=== PATIENT | female | born 1935 | race Caucasian/White ===

== ENCOUNTER 2016-10-30 21:59 | Inpatient (IN) ==
[2016-10-31] MEDS: Acetaminophen 325 MG TABLET PO PRN (02:45)
[2016-10-31] MEDS: *HR* LORazepam 0.5 MG TABLET PO PRN (02:45)
[2016-10-31 05:41] LABS: Basophils # 0.1 K/mcL (0.0-0.2); Basophils % 0.6 %; Eosinophils # 0.4 K/mcL (0.0-0.6); Eosinophils % 2.9 %; INR 1.2; Immature Granulocytes % 0.6 % (0-4); Lymphocytes # 2.6 K/mcL (0.6-4.6); Mean Corpuscular HGB Conc 33.3 g/dL (31.6-35.5); Mean Corpuscular Hemoglobin 27.8 pg (28.0-33.3); Mean Corpuscular Volume 83.3 fL (83.0-100.0); Mean Platelet Volume 9.6 fL (9.4-12.4); Monocytes # 1.2 K/mcL (0.0-1.3); Monocytes % 8.4 %; Neutrophils # 9.5 K/mcL (1.6-8.9); Platelet Count 561 K/mcL (140-400); Prothrombin Time 12.6 Seconds (9.4-12.1); Red Cell Distribution Width 13.2 % (11.5-14.5); Segmented Neutrophils % 68.5 %
[2016-10-31 05:44] LABS: Activated Partial Thrombo Time 30.3 Seconds (26.0-36.0)
[2016-10-31 05:49] LABS: BUN/Creatinine Ratio 15 (6-26); Blood Urea Nitrogen 10 mg/dL (7-20); Calcium 8.8 mg/dL (8.6-10.8); Carbon Dioxide 30 mEq/L (19-29); Chloride 100 mEq/L (98-109); Glucose 89 mg/dL (70-99); Osmolality,Calculated 289 (280-300); Potassium 3.1 mEq/L (3.5-4.5); Sodium 140 mEq/L (136-145); eGFR For African Americans > 60 (> 60); eGFR For Non-African Americans > 60 (> 60)
[2016-10-31] MEDS: Levothyroxine 25 MCG TABLET PO SCH (06:09)
[2016-10-31] MEDS: *HR* Enoxaparin 30 MG/0.3 ML SYRINGE SQ SCH (06:09)
[2016-10-31] MEDS: amLODIPine 5 MG TABLET PO SCH ×2 (08:00→20:44)
[2016-10-31] MEDS: Aspirin Enteric Coated 81 MG Tablet PO SCH (08:00)
--- NOTE | 2016-10-31 11:46 | Internal Med History&Physical ---
Date of Encounter: 10/31/16 Time of Encounter: 11:46 Internal Medicine - H&P: HPI Admitted From: Hospital to Hospital Transfer Plans for Post Hospital Care: Home History of present illness: Ms. Bolton is a 81 year old female Past Med Surg Social Fam HX - Past Medical History Medical history: arthritis, COPD, GI bleed, hypertension, SVT, thyroid disease, other Psychiatric history: anxiety - Past Surgical History Surgical History: no surgical history - Social History Smoking Status: Never smoker Smokeless Tobacco Status: No Alcohol use: none Drug use: none - Family History Mother Living Status: Hx Family Cardiac Disorders: Yes Internal Medicine - H&P: Meds Amlodipine [Norvasc] 5 mg PO BID 04/23/15 [History] Aspirin Enteric Coated [Aspirin EC] 81 mg PO DAILY 04/23/15 [History] LORazepam [Ativan] 0.5 mg PO DAILY PRN 04/23/15 [History] Levothyroxine [Synthroid] 12.5 mcg PO DAILY 04/23/15 [History] Propranolol HCl 40 mg PO 5XD 04/23/15 [History] Losartan [Cozaar] 50 mg PO BID 10/01/16 [History] Acetaminophen [Non-Aspirin] 325 mg PO Q4H PRN 10/30/16 [History] Amoxicillin/Clavulanate [Augmentin] 875 mg PO BIDWM 10/30/16 [History] Docusate [Colace] 100 mg PO DAILY PRN 10/30/16 [History] Allergies azithromycin [From Zithromax Z-Ed] Allergy (Verified 10/23/16 00:42) See Comments Iodinated Contrast Media - Oral and [Iodinated Contrast Media - IV Dye] Allergy (Verified 10/23/16 00:42) Anaphylaxis epinephrine Adverse Reaction (Verified 10/23/16 00:42) See Comments "speeds heart up" All Systems PM: A 10-system review of systems was performed and is negative for pertinent findings except as documented above in the HPI. - Constitutional Vitals: Temp Pulse Resp BP Pulse Ox 98.1 F 104 16 125/80 90 10/31/16 07:41 10/31/16 10:16 10/31/16 08:10 10/31/16 08:10 10/31/16 08:10 - Head Head exam: Present: atraumatic, normocephalic Internal Med - H&P Results - Labs CBC & Chem 7: 10/31/16 05:15 10/31/16 05:15 Labs: Short CBC 10/31/16 Range/Units 05:15 WBC 13.9 H (4.3-11.1) K/mcL Hgb 10.0 L (11.5-15.4) g/dL Hct 30.0 L (35.3-44.9) % Plt Count 561 H (140-400) K/mcL Neutrophils # 9.5 H (1.6-8.9) K/mcL BMP 10/31/16 05:15 Sodium 140 Potassium 3.1 L Chloride 100 Carbon Dioxide 30 H BUN 10 Creatinine 0.65 Glucose 89 Calcium 8.8
[2016-11-01] MEDS: Acetaminophen 325 MG TABLET PO PRN ×4 (00:06→23:30)
[2016-11-01] MEDS: *HR* LORazepam 0.5 MG TABLET PO PRN ×2 (00:07→23:29)
[2016-11-01] MEDS: *HR* Enoxaparin 30 MG/0.3 ML SYRINGE SQ SCH (06:00)
[2016-11-01] MEDS: Levothyroxine 25 MCG TABLET PO SCH (06:42)
[2016-11-01] MEDS: Aspirin Enteric Coated 81 MG Tablet PO SCH (08:38)
[2016-11-01] MEDS: amLODIPine 5 MG TABLET PO SCH ×2 (08:40→20:26)
--- NOTE | 2016-11-01 13:33 | Internal Med Progress Note ---
Date of Encounter: 11/01/16 Time of Encounter: 13:31 - Assessment and plan (1) Acute diverticulitis Current Visit: No Status: Acute Assessment and plan: Patient had conservative nonsurgical treatment for perfect diverticulum. IV antibiotics seem to work to white count is coming down fever is absent and the patient is eating. We will follow - Time Spent With Patient less than 15 minutes - Subjective Interval history: Patient is cooperating with therapy and is doing well. her only complaint right now is diarrhea which are not attempting to correct - Constitutional Vitals: Temp Pulse Resp BP Pulse Ox 98.2 F 78 18 113/75 90 11/01/16 11:49 11/01/16 11:49 11/01/16 11:49 11/01/16 11:49 11/01/16 11:49 - Head Head exam: Present: normal inspection - Respiratory Respiratory exam: Present: CTAB. Absent: accessory muscle use, rales, rhonchi, wheezes - Cardiovascular Cardiovascular exam: Present: RRR, +S1, +S2. Absent: diastolic murmur, gallop, rubs, systolic murmur - GI/Abdominal GI/Abdominal exam: Present: normal bowel sounds, soft, no peritoneal signs. Absent: distended, tenderness Internal Medicine: Result - Labs CBC & Chem 7: 10/31/16 05:15 11/01/16 05:00 Labs: BMP 11/01/16 05:00 Potassium 3.7 Lab is okay except for blood sugar. - ABG Interpretation ABG results: PT/INR, D-dimer PT 12.6 Seconds (9.4-12.1) H 10/31/16 05:15 Consult Discharge Plan - Plan Referrals: NO,PCP [Primary Care Provider] -
[2016-11-01] MEDS ORDERED: Diphenoxylate/Atropine 1 TAB TABLET PO ONE (13:37)
[2016-11-01] MEDS ORDERED: Diphenoxylate/Atropine 1 TAB TABLET PO PRN (13:41)
[2016-11-02 05:22] LABS: Basophils # 0.1 K/mcL (0.0-0.2); Basophils % 0.5 %; Eosinophils # 0.4 K/mcL (0.0-0.6); Eosinophils % 2.2 %; Hematocrit 29.9 % (35.3-44.9); Hemoglobin 9.9 g/dL (11.5-15.4); Immature Granulocytes % 0.8 % (0-4); Lymphocytes # 2.6 K/mcL (0.6-4.6); Mean Corpuscular HGB Conc 33.1 g/dL (31.6-35.5); Mean Corpuscular Hemoglobin 27.7 pg (28.0-33.3); Mean Corpuscular Volume 83.5 fL (83.0-100.0); Mean Platelet Volume 9.7 fL (9.4-12.4); Monocytes # 1.3 K/mcL (0.0-1.3); Platelet Count 571 K/mcL (140-400); Red Blood Count 3.58 M/mcL (3.82-4.97); Red Cell Distribution Width 13.2 % (11.5-14.5); Segmented Neutrophils % 72.5 %
[2016-11-02] MEDS: Levothyroxine 25 MCG TABLET PO SCH (06:02)
--- NOTE | 2016-11-02 09:19 | Internal Med Progress Note ---
Date of Encounter: 11/02/16 Time of Encounter: 09:17 - Assessment and plan (1) Bowel perforation Current Visit: Yes Status: Chronic Assessment and plan: Status post bowel perforation from perforated diverticulitis. On antibiotics. WBC increased from 13 K2 16 K. We will continue to monitor. Continue with antibiotics. (2) Atrial fibrillation Current Visit: Yes Status: Chronic Assessment and plan: Rate control. OnzInderal Qualifiers: Atrial fibrillation type: chronic Qualified Code(s): I48.2 - Chronic atrial fibrillation (3) Diarrhea Current Visit: Yes Status: Acute Assessment and plan: C. difficile pending. Qualifiers: Diarrhea type: unspecified type Qualified Code(s): R19.7 - Diarrhea, unspecified - Time Spent With Patient less than 15 minutes - Subjective Interval history: Patient wants probiotic. Still complains of mild diarrhea. No shortness of breath. No chest pain. No abdominal pain. - Constitutional Vitals: Temp Pulse Resp BP Pulse Ox 98.3 F 76 16 138/74 93 11/02/16 07:00 11/02/16 07:00 11/02/16 07:00 11/02/16 07:00 11/02/16 07:00 General appearance: Present: A&O X 3, no acute distress - Respiratory Respiratory exam: Present: CTAB. Absent: accessory muscle use, rales, rhonchi, wheezes - Cardiovascular Cardiovascular exam: Present: RRR, +S1, +S2. Absent: diastolic murmur, gallop, rubs, systolic murmur - GI/Abdominal GI/Abdominal exam: Present: normal bowel sounds, soft, no peritoneal signs. Absent: distended, guarding, tenderness - Incison Incision: Present: clean and dry Internal Medicine: Result - Labs CBC & Chem 7: 11/02/16 05:10 11/02/16 04:43 Labs: Short CBC 11/02/16 Range/Units 05:10 WBC 16.5 H (4.3-11.1) K/mcL Hgb 9.9 L (11.5-15.4) g/dL Hct 29.9 L (35.3-44.9) % Plt Count 571 H (140-400) K/mcL Neutrophils # 12.0 H (1.6-8.9) K/mcL BMP 11/02/16 04:43 Potassium 4.0 - ABG Interpretation ABG results: PT/INR, D-dimer PT 12.6 Seconds (9.4-12.1) H 10/31/16 05:15 Consult Discharge Plan - Plan Referrals: NO,PCP [Primary Care Provider] -
[2016-11-02] MEDS: amLODIPine 5 MG TABLET PO SCH (09:51)
[2016-11-02] MEDS: Aspirin Enteric Coated 81 MG Tablet PO SCH (09:52)
[2016-11-02] MEDS: Acetaminophen 325 MG TABLET PO PRN (09:56)
[2016-11-02] MEDS: Lactobacillus 1 EACH CAP.SPRINK PO SCH (18:42)
[2016-11-02] MEDS ORDERED: Lactobacillus 1 EACH CAP.SPRINK PO SCH (21:00)
[2016-11-02] MEDS: metroNIDAZOLE 500 MG TABLET PO SCH (21:37)
[2016-11-03] MEDS: *HR* LORazepam 0.5 MG TABLET PO PRN (01:18)
[2016-11-03] MEDS: Acetaminophen 325 MG TABLET PO PRN (01:19)
[2016-11-03] MEDS: Levothyroxine 25 MCG TABLET PO SCH (06:59)
[2016-11-03] MEDS: metroNIDAZOLE 500 MG TABLET PO SCH ×2 (10:10→20:22)
[2016-11-03] MEDS: amLODIPine 5 MG TABLET PO SCH (10:10)
[2016-11-03] MEDS: Aspirin Enteric Coated 81 MG Tablet PO SCH (10:10)
[2016-11-03] MEDS: Lactobacillus 1 EACH CAP.SPRINK PO SCH ×2 (10:10→20:22)
--- NOTE | 2016-11-03 12:23 | Internal Med Progress Note ---
Date of Encounter: 11/03/16 Time of Encounter: 12:22 - Assessment and plan (1) Bowel perforation Current Visit: Yes Status: Chronic Assessment and plan: Status post bowel perforation from perforated diverticulitis. On antibiotics. WBC increased from 13 K2 16 K. We will continue to monitor. Continue with antibiotics. (2) Atrial fibrillation Current Visit: Yes Status: Chronic Assessment and plan: Rate control. OnzInderal Qualifiers: Atrial fibrillation type: chronic Qualified Code(s): I48.2 - Chronic atrial fibrillation (3) Diarrhea Current Visit: Yes Status: Acute Assessment and plan: C. difficile positive. Flagyl started Qualifiers: Diarrhea type: unspecified type Qualified Code(s): R19.7 - Diarrhea, unspecified - Subjective Interval history: Patient wants probiotic. Still complains of mild diarrhea. No shortness of breath. No chest pain. No abdominal pain. C. difficile positive today. - Constitutional Vitals: Temp Pulse Resp BP Pulse Ox 98.1 F 75 16 119/68 93 11/03/16 08:58 11/03/16 08:58 11/03/16 08:58 11/03/16 08:58 11/03/16 08:58 General appearance: Present: A&O X 3, no acute distress - Respiratory Respiratory exam: Present: CTAB. Absent: accessory muscle use, rales, rhonchi, wheezes - GI/Abdominal GI/Abdominal exam: Present: normal bowel sounds, soft, no peritoneal signs. Absent: distended, tenderness Internal Medicine: Result - Labs CBC & Chem 7: 11/02/16 05:10 11/02/16 04:43 - ABG Interpretation ABG results: PT/INR, D-dimer PT 12.6 Seconds (9.4-12.1) H 10/31/16 05:15 Consult Discharge Plan - Plan Referrals: NO,PCP [Primary Care Provider] -
[2016-11-04] MEDS: *HR* LORazepam 0.5 MG TABLET PO PRN (00:06)
[2016-11-04] MEDS: Acetaminophen 325 MG TABLET PO PRN ×2 (00:06→04:13)
[2016-11-04 05:29] LABS: Basophils # 0.1 K/mcL (0.0-0.2); Basophils % 0.6 %; Eosinophils # 0.4 K/mcL (0.0-0.6); Eosinophils % 2.4 %; Hematocrit 28.7 % (35.3-44.9); Hemoglobin 9.6 g/dL (11.5-15.4); Immature Granulocytes % 0.7 % (0-4); Lymphocytes # 3.1 K/mcL (0.6-4.6); Lymphocytes % 21.1 %; Mean Corpuscular HGB Conc 33.4 g/dL (31.6-35.5); Mean Corpuscular Hemoglobin 27.7 pg (28.0-33.3); Mean Corpuscular Volume 82.9 fL (83.0-100.0); Mean Platelet Volume 9.4 fL (9.4-12.4); Monocytes % 8.6 %; Neutrophils # 9.7 K/mcL (1.6-8.9); Platelet Count 613 K/mcL (140-400); Red Blood Count 3.46 M/mcL (3.82-4.97); Red Cell Distribution Width 13.4 % (11.5-14.5); Segmented Neutrophils % 66.6 %
[2016-11-04 05:30] LABS: Monocytes # 1.3 K/mcL (0.0-1.3)
[2016-11-04] MEDS: Levothyroxine 25 MCG TABLET PO SCH (06:29)
[2016-11-04] MEDS: Lactobacillus 1 EACH CAP.SPRINK PO SCH ×2 (09:25→20:52)
[2016-11-04] MEDS: amLODIPine 5 MG TABLET PO SCH (09:25)
[2016-11-04] MEDS: metroNIDAZOLE 500 MG TABLET PO SCH ×2 (09:25→20:52)
[2016-11-04] MEDS: Aspirin Enteric Coated 81 MG Tablet PO SCH (09:26)
--- NOTE | 2016-11-04 14:11 | Internal Med Progress Note ---
Date of Encounter: 11/04/16 Time of Encounter: 14:10 - Assessment and plan (1) Bowel perforation Current Visit: Yes Status: Chronic Assessment and plan: Status post bowel perforation from perforated diverticulitis. On antibiotics. . We will continue to monitor. Continue with antibiotics. WBC down to 14 K (2) Atrial fibrillation Current Visit: Yes Status: Chronic Assessment and plan: Rate control. OnzInderal Qualifiers: Atrial fibrillation type: chronic Qualified Code(s): I48.2 - Chronic atrial fibrillation (3) Diarrhea Current Visit: Yes Status: Acute Qualifiers: Diarrhea type: unspecified type Qualified Code(s): R19.7 - Diarrhea, unspecified - Time Spent With Patient less than 15 minutes - Subjective Interval history: Still complains of mild diarrhea. No shortness of breath. No chest pain. No abdominal pain. C. difficile positive . - Constitutional Vitals: Temp Pulse Resp BP Pulse Ox 98.2 F 77 14 131/72 92 11/04/16 08:00 11/04/16 08:00 11/04/16 08:00 11/04/16 08:00 11/04/16 08:00 General appearance: Present: A&O X 3, no acute distress - Respiratory Respiratory exam: Present: CTAB. Absent: accessory muscle use, rales, rhonchi, wheezes - Cardiovascular Cardiovascular exam: Present: RRR, +S1, +S2. Absent: diastolic murmur, gallop, rubs, systolic murmur - GI/Abdominal GI/Abdominal exam: Present: normal bowel sounds, soft, no peritoneal signs. Absent: distended, tenderness - Extremities Exam Extremities exam: Present: warm, radial pulses palpable and symetrical. Absent : calf tenderness, cyanotic, pedal edema Internal Medicine: Result - Labs CBC & Chem 7: 11/04/16 05:00 11/02/16 04:43 Labs: Short CBC 11/04/16 Range/Units 05:00 WBC 14.5 H (4.3-11.1) K/mcL Hgb 9.6 L (11.5-15.4) g/dL Hct 28.7 L (35.3-44.9) % Plt Count 613 H (140-400) K/mcL Neutrophils # 9.7 H (1.6-8.9) K/mcL - ABG Interpretation ABG results: PT/INR, D-dimer PT 12.6 Seconds (9.4-12.1) H 10/31/16 05:15 - VTE Documentation of Mechanical Device: Graduated compression elastic hosiery Consult Discharge Plan - Plan Referrals: NO,PCP [Primary Care Provider] -
[2016-11-05] MEDS: Acetaminophen 325 MG TABLET PO PRN (00:05)
[2016-11-05] MEDS: *HR* LORazepam 0.5 MG TABLET PO PRN (00:05)
[2016-11-05 05:27] LABS: Basophils # 0.1 K/mcL (0.0-0.2); Basophils % 0.6 %; Eosinophils # 0.3 K/mcL (0.0-0.6); Eosinophils % 2.4 %; Hematocrit 28.5 % (35.3-44.9); Hemoglobin 9.4 g/dL (11.5-15.4); Immature Granulocytes % 0.9 % (0-4); Lymphocytes # 2.9 K/mcL (0.6-4.6); Lymphocytes % 20.4 %; Mean Corpuscular Hemoglobin 27.4 pg (28.0-33.3); Mean Corpuscular Volume 83.1 fL (83.0-100.0); Mean Platelet Volume 9.5 fL (9.4-12.4); Neutrophils # 9.7 K/mcL (1.6-8.9); Platelet Count 634 K/mcL (140-400); Red Blood Count 3.43 M/mcL (3.82-4.97); Red Cell Distribution Width 13.5 % (11.5-14.5); Segmented Neutrophils % 68.7 %
[2016-11-05 05:35] LABS: BUN/Creatinine Ratio 15 (6-26); Blood Urea Nitrogen 11 mg/dL (7-20); Calcium 8.5 mg/dL (8.6-10.8); Carbon Dioxide 25 mEq/L (19-29); Chloride 104 mEq/L (98-109); Glucose 96 mg/dL (70-99); Osmolality,Calculated 285 (280-300); Potassium 4.5 mEq/L (3.5-4.5); Sodium 138 mEq/L (136-145); eGFR For African Americans > 60 (> 60); eGFR For Non-African Americans > 60 (> 60)
[2016-11-05] MEDS: Levothyroxine 25 MCG TABLET PO SCH (05:56)
[2016-11-05] MEDS: amLODIPine 5 MG TABLET PO SCH (08:44)
[2016-11-05] MEDS: Aspirin Enteric Coated 81 MG Tablet PO SCH (08:45)
[2016-11-05] MEDS: Lactobacillus 1 EACH CAP.SPRINK PO SCH ×2 (08:45→20:37)
[2016-11-05] MEDS: metroNIDAZOLE 500 MG TABLET PO SCH ×2 (08:45→20:37)
--- NOTE | 2016-11-05 10:06 | Internal Med Progress Note ---
Date of Encounter: 11/05/16 Time of Encounter: 10:04 - Assessment and plan (1) Bowel perforation Current Visit: Yes Status: Chronic Assessment and plan: Status post bowel perforation from perforated diverticulitis. On antibiotics. . We will continue to monitor. Continue with antibiotics. (2) Atrial fibrillation Current Visit: Yes Status: Chronic Assessment and plan: Rate control. OnzInderal Qualifiers: Atrial fibrillation type: chronic Qualified Code(s): I48.2 - Chronic atrial fibrillation (3) Diarrhea Current Visit: Yes Status: Acute Assessment and plan: C. difficile positive. Flagyl started seems to have resolved Qualifiers: Diarrhea type: unspecified type Qualified Code(s): R19.7 - Diarrhea, unspecified - Time Spent With Patient less than 15 minutes - Subjective Interval history: Diarrhea have resolved. She wants to discontinue her Augmentin. Complains of sores in her mouth. Also complains of hemorrhoids. She feels stronger today with more energy.. No shortness of breath. No chest pain. No abdominal pain. C. difficile positive . - Constitutional Vitals: Temp Pulse Resp BP Pulse Ox 98.1 F 77 18 130/73 93 11/05/16 07:42 11/05/16 07:42 11/05/16 07:42 11/05/16 07:42 11/05/16 07:42 General appearance: Present: A&O X 3, no acute distress - Respiratory Respiratory exam: Present: CTAB. Absent: accessory muscle use, rales, rhonchi, wheezes - Cardiovascular Cardiovascular exam: Present: RRR, +S1, +S2. Absent: diastolic murmur, gallop, rubs, systolic murmur - GI/Abdominal GI/Abdominal exam: Present: normal bowel sounds, soft, no peritoneal signs. Absent: distended, tenderness - Extremities Exam Extremities exam: Present: warm, radial pulses palpable and symetrical. Absent : calf tenderness, cyanotic, pedal edema Internal Medicine: Result - Labs CBC & Chem 7: 11/05/16 05:00 11/05/16 05:00 Labs: Short CBC 11/05/16 Range/Units 05:00 WBC 14.1 H (4.3-11.1) K/mcL Hgb 9.4 L (11.5-15.4) g/dL Hct 28.5 L (35.3-44.9) % Plt Count 634 H (140-400) K/mcL Neutrophils # 9.7 H (1.6-8.9) K/mcL BMP 11/05/16 05:00 Sodium 138 Potassium 4.5 Chloride 104 Carbon Dioxide 25 BUN 11 Creatinine 0.73 Glucose 96 Calcium 8.5 L - ABG Interpretation ABG results: PT/INR, D-dimer PT 12.6 Seconds (9.4-12.1) H 10/31/16 05:15 - VTE Documentation of Mechanical Device: Graduated compression elastic hosiery Consult Discharge Plan - Plan Referrals: NO,PCP [Primary Care Provider] -
[2016-11-05] MEDS ORDERED: Preparation H Ointment 30 GM TUBE TP PRN (10:12)
[2016-11-06] MEDS: Acetaminophen 325 MG TABLET PO PRN ×3 (00:08→21:11)
[2016-11-06] MEDS: *HR* LORazepam 0.5 MG TABLET PO PRN (00:09)
[2016-11-06] MEDS: Levothyroxine 25 MCG TABLET PO SCH (06:03)
[2016-11-06] MEDS: Lactobacillus 1 EACH CAP.SPRINK PO SCH ×2 (08:40→21:11)
[2016-11-06] MEDS: Aspirin Enteric Coated 81 MG Tablet PO SCH (08:41)
[2016-11-06] MEDS: amLODIPine 5 MG TABLET PO SCH (08:41)
[2016-11-06] MEDS: metroNIDAZOLE 500 MG TABLET PO SCH ×2 (08:41→21:11)
[2016-11-06] MEDS: Magic Mouthwash 10 ML UD Cup PO PRN ×2 (12:30→21:12)
--- NOTE | 2016-11-06 14:33 | Internal Med Progress Note ---
Date of Encounter: 11/06/16 Time of Encounter: 14:31 - Assessment and plan (1) Acute diverticulitis Current Visit: No Status: Acute Assessment and plan: Patient had more than acute diverticulitis she had perforated bowel free air. Was treated conservatively and seems to be successful - Time Spent With Patient less than 15 minutes - Subjective Interval history: Jimy is getting a formed stool. I believe C. difficile was resolved. She is ambulating household distances and will be discharged tomorrow. - Constitutional Vitals: Temp Pulse Resp BP Pulse Ox 98.3 F 82 16 114/68 94 11/06/16 11:58 11/06/16 12:36 11/06/16 11:58 11/06/16 12:36 11/06/16 11:58 General appearance: Present: A&O X 3, no acute distress - Head Head exam: Present: atraumatic, normal inspection, normocephalic - Neck Neck exam general surgery: Present: supple, trachea midline. Absent: lymphadenopathy - Respiratory Respiratory exam: Present: CTAB. Absent: accessory muscle use, rales, rhonchi, wheezes - Cardiovascular Cardiovascular exam: Present: RRR, +S1, +S2. Absent: diastolic murmur, gallop, rubs, systolic murmur Internal Medicine: Result - Labs CBC & Chem 7: 11/05/16 05:00 11/05/16 05:00 Labs: Lites look fine - ABG Interpretation ABG results: PT/INR, D-dimer PT 12.6 Seconds (9.4-12.1) H 10/31/16 05:15 - VTE Documentation of Mechanical Device: Graduated compression elastic hosiery Consult Discharge Plan - Plan Referrals: [facility] [Other] Keyshawn Astudillo MD [Partnered Physician] - 11/12/16 9:45 am (follow up appointment) NO,PCP [Primary Care Provider] -
[2016-11-07] MEDS: *HR* LORazepam 0.5 MG TABLET PO PRN ×2 (00:48→19:48)
[2016-11-07] MEDS: Magic Mouthwash 10 ML UD Cup PO PRN (00:49)
[2016-11-07] MEDS: Acetaminophen 325 MG TABLET PO PRN ×2 (00:52→06:52)
[2016-11-07] MEDS: Levothyroxine 25 MCG TABLET PO SCH (06:49)
[2016-11-07] MEDS: amLODIPine 5 MG TABLET PO SCH (09:21)
[2016-11-07] MEDS: Aspirin Enteric Coated 81 MG Tablet PO SCH (09:21)
[2016-11-07] MEDS: metroNIDAZOLE 500 MG TABLET PO SCH ×2 (09:21→19:49)
[2016-11-07] MEDS: Lactobacillus 1 EACH CAP.SPRINK PO SCH ×2 (09:21→19:48)
--- NOTE | 2016-11-07 13:35 | Discharge Summary ---
Date of Encounter: 11/07/16 Time of Encounter: 13:33 - Discharge Diagnosis (1) Acute diverticulitis Priority: Primary Status: Acute Comments: Patient had acute perforation secondary to a ruptured diverticulum. We treated conservatively at [facility] antibiotics he got C. difficile. This was also addressed and the patient was here for rehabilitation. She has lost weight encouraged to eat. She very nervous about what to eat and also about her heart rate. She has a history of paroxysmal atrial fib. Very nervous lady who will get home health. - Discharge Medications Home Medications: Amlodipine [Norvasc] 5 mg PO BID 04/23/15 [History] Aspirin Enteric Coated [Aspirin EC] 81 mg PO DAILY 04/23/15 [History] LORazepam [Ativan] 0.5 mg PO DAILY PRN 04/23/15 [History] Levothyroxine [Synthroid] 12.5 mcg PO DAILY 04/23/15 [History] Propranolol HCl 40 mg PO 5XD 04/23/15 [History] Losartan [Cozaar] 50 mg PO BID 10/01/16 [History] Acetaminophen [Non-Aspirin] 325 mg PO Q4H PRN 10/30/16 [History] Amoxicillin/Clavulanate [Augmentin] 875 mg PO BIDWM 10/30/16 [History] Docusate [Colace] 100 mg PO DAILY PRN 10/30/16 [History] Allergies/Adverse Reactions: Allergies azithromycin [From Zithromax Z-Ed] Allergy (Verified 10/23/16 00:42) See Comments Iodinated Contrast Media - Oral and [Iodinated Contrast Media - IV Dye] Allergy (Verified 10/23/16 00:42) Anaphylaxis epinephrine Adverse Reaction (Verified 10/23/16 00:42) See Comments "speeds heart up" Date of admission: 10/30/16 21:59 Primary care physician: PCP NO Consults: 10/30/16 22:20 Consult to Occupational Therapy [CONS] Routine Comment: eval and treat Reason for Consult: eval and treat Consult to Physical Therapy [CONS] Routine Comment: eval and treat Reason for Consult: eval and treat Consult to Recreational Therapy [CONS] Routine Comment: Consult to Executive [employer] [CONS] Routine Reason for SW Consult: eval and treat 10/30/16 22:33 Consult to Nutrition [CONS] Routine Comment: Consulting Provider: NUTRITION Reason for Dietary Consult: Other Discharging clinician: Tray Jason Anticipated date of discharge: 11/07/16 - Patient Status Disposition: Home Health Service Condition: Good Functional capacity at discharge: uses cane/walker Overall status at discharge: patient is progressing back to baseline - Discharge Instructions Follow Up With: [facility] [Other] Keyshawn Astudillo MD [Partnered Physician] - 11/12/16 9:45 am (follow up appointment) NO,PCP [Primary Care Provider] - - Diet and Activity Activity: ambulate only with your walker Diet: advance to your usual diet Interval History: Transferred here after conservative treatment for ruptured tic Hospital course: Ms. Bolton is a 81 year old female Age and is done well here she has stable vital signs and will be discharged home with home health - Time Spent with Patient Total time spent providing and/or coordinating discharge services: Less than 30 minutes - Constitutional Vitals: Temp Pulse Resp BP Pulse Ox 98.3 F 78 16 117/71 92 11/07/16 11:52 11/07/16 11:52 11/07/16 11:52 11/07/16 11:52 11/07/16 11:52 General appearance: Present: A&O X 3, no acute distress - Head Head exam: Present: atraumatic, normal inspection, normocephalic - Neck Neck exam general surgery: Present: supple, trachea midline. Absent: lymphadenopathy - Respiratory Respiratory exam: Present: CTAB. Absent: accessory muscle use, rales, rhonchi, wheezes - Cardiovascular Cardiovascular exam: Present: RRR, +S1, +S2. Absent: diastolic murmur, gallop, rubs, systolic murmur - GI/Abdominal GI/Abdominal exam: Present: normal bowel sounds, soft, no peritoneal signs. Absent: distended, tenderness - VTE Documentation of Mechanical Device: Graduated compression elastic hosiery
--- NOTE | 2016-11-07 13:53 | Physician Discharge Referral ---
Home Health/Hosp Referral Info Transfer to: Home Health Provider in Charge Post Discharge: PCP - Diagnosis (1) Acute diverticulitis Priority: Primary (Patient had nonsurgical treatment of her perforated diverticulum.) Status: Acute - Respiratory Orders Smoking Cessation: Smoking cessation has been advised. For more information, call the [place] Tobacco Quit Line at 4-349-YKLF-NOW. - Diet/Nutrition Diet/Nutrition Orders: Regular - Activity Activity Orders: Up ad mayra - Services Needed Following services are medically necessary services: Nursing, Physical Therapy - Transfer Medications Home Medications: Amlodipine [Norvasc] 5 mg PO BID 04/23/15 [History] Aspirin Enteric Coated [Aspirin EC] 81 mg PO DAILY 04/23/15 [History] LORazepam [Ativan] 0.5 mg PO DAILY PRN 04/23/15 [History] Levothyroxine [Synthroid] 12.5 mcg PO DAILY 04/23/15 [History] Propranolol HCl 40 mg PO 5XD 04/23/15 [History] Losartan [Cozaar] 50 mg PO BID 10/01/16 [History] Acetaminophen [Non-Aspirin] 325 mg PO Q4H PRN 10/30/16 [History] Amoxicillin/Clavulanate [Augmentin] 875 mg PO BIDWM 10/30/16 [History] Docusate [Colace] 100 mg PO DAILY PRN 10/30/16 [History] Allergies/Adverse Reactions: Allergies azithromycin [From Zithromax Z-Ed] Allergy (Verified 10/23/16 00:42) See Comments Iodinated Contrast Media - Oral and [Iodinated Contrast Media - IV Dye] Allergy (Verified 10/23/16 00:42) Anaphylaxis epinephrine Adverse Reaction (Verified 10/23/16 00:42) See Comments "speeds heart up" Certification: Further, I certify that my clinical findings support that this patient is homebound (i.e. absences from home require considerable and taxing effort and are for medical reasons or sabianism services or infrequently or short duration when for other reasons) because: Homebound Reason: Patient requires assistance of a person or device to safely leave home Attestation: My signature below is to certify that this patient is under my care and that I, or nurse practitioner, or a physician's housekeeper and laundry assistant working with me, has a face-to -face encounter with this patient.
[2016-11-07 16:21] LABS: Hematocrit 30.7 % (35.3-44.9); Hemoglobin 10.1 g/dL (11.5-15.4); Mean Corpuscular HGB Conc 32.9 g/dL (31.6-35.5); Mean Corpuscular Hemoglobin 27.7 pg (28.0-33.3); Mean Corpuscular Volume 84.1 fL (83.0-100.0); Mean Platelet Volume 9.1 fL (9.4-12.4); Platelet Count 695 K/mcL (140-400); Red Blood Count 3.65 M/mcL (3.82-4.97); Red Cell Distribution Width 13.7 % (11.5-14.5)
[2016-11-08] MEDS: Acetaminophen 325 MG TABLET PO PRN (00:35)
[2016-11-08] MEDS: *HR* LORazepam 0.5 MG TABLET PO PRN (00:35)
[2016-11-08] MEDS: Levothyroxine 25 MCG TABLET PO SCH (08:19)
[2016-11-08] MEDS: Lactobacillus 1 EACH CAP.SPRINK PO SCH (10:12)
[2016-11-08] MEDS: amLODIPine 5 MG TABLET PO SCH (10:12)
[2016-11-08] MEDS: Aspirin Enteric Coated 81 MG Tablet PO SCH (10:12)
[2016-11-08] MEDS: metroNIDAZOLE 500 MG TABLET PO SCH (10:12)
[2016-11-08 11:36] VITALS: BP 118/80
--- NOTE | 2016-11-12 06:50 | Electrocardiograph Report ---
[place] [id number] Test Date: 2016-11-08 Pat Name: Theresa Bolton Department: 2001 Room: 117 Gender: F [employer] Buyer: : [id number] Requested By: Tray Jason Order Number: [id number] Reading MD: Keegan Doshi MD Measurements Intervals [place] Rate: 80 P: 86 [place]: 227 QRS: -38 QRSD: 81 T: 68 QT: 351 QTc: 387 Interpretive Statements SINUS RHYTHM WITH FIRST DEGREE AV BLOCK WITH OCCASIONAL SUPRAVENTRICULAR PREMATURE COMPLEXES MARKED LEFT AXIS DEVIATION Electronically Signed On 11-12-2016 6:48:38 EDT by Keegan Doshi MD
== END 2016-11-08 14:22 | disposition home health service (06) | DRG 945 ==
LOC: INPGRE 21:59
PROVIDERS: ADMIT Internal Medicine; ATTEND Internal Medicine

== ENCOUNTER 2019-06-05 19:45 | Inpatient (IN) ==
[2019-06-05 20:41] LABS: Basophils # 0.1 K/mcL (0.0-0.2); Basophils % 0.4 %; Eosinophils # 0.2 K/mcL (0.0-0.6); Eosinophils % 0.8 %; Hematocrit 40.3 % (35.3-44.9); Immature Granulocytes % 0.4 % (0-4); Lymphocytes # 3.1 K/mcL (0.6-4.6); Lymphocytes % 16.6 %; Mean Corpuscular HGB Conc 32.3 g/dL (31.6-35.5); Mean Corpuscular Hemoglobin 30.2 pg (28.0-33.3); Mean Corpuscular Volume 93.5 fL (83.0-100.0); Mean Platelet Volume 9.7 fL (9.4-12.4); Monocytes # 1.9 K/mcL (0.0-1.3); Monocytes % 10.1 %; Neutrophils # 13.3 K/mcL (1.6-8.9); Platelet Count 473 K/mcL (140-400); Red Blood Count 4.31 M/mcL (3.82-4.97); Red Cell Distribution Width 13.2 % (11.5-14.5); Segmented Neutrophils % 71.7 %; White Blood Count 18.6 K/mcL (4.3-11.1)
[2019-06-05 20:46] LABS: VBG HCO3 33 mEq/L (21-27); VBG PCO2 43 mmHg (41-51); VBG PH 7.49 pH Units (7.32-7.42); VBG PO2 33 mmHg (25-50)
[2019-06-05 20:46] LABS: Bilirubin,Urine Negative (Negative); Blood,Urine Moderate (Negative); Clarity,Urine Cloudy (Clear); Color,Urine Yellow (Yellow); Glucose,Urine (UA) Normal (Normal); Ketones,Urine Negative (Negative); Leukocyte Esterase,Urine Small (Negative); Nitrite,Urine Negative (Negative); Protein,Urine 30 mg/dL (Neg-Trace); Specific Gravity,Urine 1.015 (1.010-1.025); Urobilinogen,Urine Normal (Normal)
[2019-06-05 20:50] LABS: Bacteria,Urine Many per hpf (None-Few); Squamous Epithelial Cell,Urine Moderate per lpf (None-Few); Transitional Epi Cells,Urine Few per hpf (None-Few); WBC,Urine 50-100 per hpf (0-3)
[2019-06-05 21:00] LABS: Alanine Aminotransferase 9 Units/L (7-52); Albumin 3.2 g/dL (3.5-5.7); Albumin/Globulin Ratio 0.8 (1.1-2.2); Alkaline Phosphatase 54 Units/L (34-104); Aspartate Amino Transferase 13 Units/L (13-39); BUN/Creatinine Ratio 21 (6-26); Bilirubin,Total 0.6 mg/dL (0.3-1.0); Blood Urea Nitrogen 14 mg/dL (8-23); Calcium 8.8 mg/dL (8.6-10.3); Carbon Dioxide 37 mEq/L (23-29); Chloride 92 mEq/L (98-107); Globulin 3.8 g/dL (2.4-3.5); Glucose 125 mg/dL (70-105); Magnesium 2.1 mg/dL (1.6-2.6); Osmolality,Calculated 280 (280-300); Potassium 3.2 mEq/L (3.5-5.1); Sodium 134 mEq/L (136-145); Troponin I < 0.03 ng/mL (< 0.04); eGFR For African Americans > 60 (> 60); eGFR For Non-African Americans > 60 (> 60)
[2019-06-05] MEDS ORDERED: Naloxone 0.4 MG/ML INJ IVP PRN (22:12)
[2019-06-06] MEDS: Acetaminophen 325 MG TABLET PO PRN ×2 (04:14→16:32)
[2019-06-06 06:00] LABS: Basophils # 0.1 K/mcL (0.0-0.2); Basophils % 0.5 %; Eosinophils # 0.2 K/mcL (0.0-0.6); Hemoglobin 12.8 g/dL (11.5-15.4); Immature Granulocytes % 0.4 % (0-4); Lymphocytes % 12.9 %; Mean Corpuscular HGB Conc 32.8 g/dL (31.6-35.5); Mean Corpuscular Hemoglobin 30.8 pg (28.0-33.3); Mean Corpuscular Volume 93.8 fL (83.0-100.0); Mean Platelet Volume 9.8 fL (9.4-12.4); Monocytes # 1.8 K/mcL (0.0-1.3); Monocytes % 11.7 %; Neutrophils # 11.3 K/mcL (1.6-8.9); Platelet Count 426 K/mcL (140-400); Red Blood Count 4.16 M/mcL (3.82-4.97); Red Cell Distribution Width 13.2 % (11.5-14.5); Segmented Neutrophils % 73.5 %; White Blood Count 15.4 K/mcL (4.3-11.1)
[2019-06-06] MEDS: *HR* Enoxaparin 30 MG/0.3 ML SYRINGE SQ SCH (06:17)
[2019-06-06] MEDS: amLODIPine 5 MG TABLET PO SCH ×2 (07:50→21:59)
[2019-06-06] MEDS: Aspirin Enteric Coated 81 MG Tablet PO SCH (07:50)
[2019-06-06] MEDS: Multivit/Ca/Min/Fe/FA 1 TAB TABLET PO SCH (07:51)
[2019-06-06] MEDS ORDERED: NON-FORMULARY MEDICATION 1 EACH EACH (Potassium 99 MG) PO SCH (09:00)
[2019-06-06] MEDS: cefTRIAXone 1,000 MG in 0.9 % Sodium Chloride Mini Bag 100 ML IVPB SCH ×2 (10:44→22:09)
[2019-06-06] MEDS ORDERED: Ipratropium/Albuterol Neb 3 ML IH PRN (16:24)
[2019-06-07] MEDS: Acetaminophen 325 MG TABLET PO PRN ×3 (00:08→16:35)
[2019-06-07] MEDS: *HR* LORazepam 0.5 MG TABLET PO PRN ×2 (00:16→21:19)
[2019-06-07 05:24] LABS: Hematocrit 41.1 % (35.3-44.9); Hemoglobin 12.9 g/dL (11.5-15.4); Mean Corpuscular HGB Conc 31.4 g/dL (31.6-35.5); Mean Corpuscular Hemoglobin 29.8 pg (28.0-33.3); Mean Corpuscular Volume 94.9 fL (83.0-100.0); Mean Platelet Volume 10.3 fL (9.4-12.4); Platelet Count 483 K/mcL (140-400); Red Blood Count 4.33 M/mcL (3.82-4.97); Red Cell Distribution Width 13.1 % (11.5-14.5); White Blood Count 15.6 K/mcL (4.3-11.1)
[2019-06-07 05:41] LABS: BUN/Creatinine Ratio 14 (6-26); Blood Urea Nitrogen 7 mg/dL (8-23); Calcium 8.7 mg/dL (8.6-10.3); Carbon Dioxide 35 mEq/L (23-29); Chloride 97 mEq/L (98-107); Glucose 106 mg/dL (70-105); Osmolality,Calculated 282 (280-300); Potassium 3.6 mEq/L (3.5-5.1); Sodium 137 mEq/L (136-145); eGFR For African Americans > 60 (> 60); eGFR For Non-African Americans > 60 (> 60)
[2019-06-07] MEDS: *HR* Enoxaparin 30 MG/0.3 ML SYRINGE SQ SCH (06:06)
[2019-06-07] MEDS: Multivit/Ca/Min/Fe/FA 1 TAB TABLET PO SCH (07:58)
[2019-06-07] MEDS: Aspirin Enteric Coated 81 MG Tablet PO SCH (07:58)
[2019-06-07] MEDS: amLODIPine 5 MG TABLET PO SCH ×2 (07:58→20:56)
[2019-06-07] MEDS: cefTRIAXone 1,000 MG in 0.9 % Sodium Chloride Mini Bag 100 ML IVPB SCH ×2 (09:35→20:55)
[2019-06-08] MEDS: *HR* Enoxaparin 40 MG/0.4 ML SYRINGE SQ SCH (05:58)
[2019-06-08 06:38] LABS: Hematocrit 39.6 % (35.3-44.9); Hemoglobin 12.8 g/dL (11.5-15.4); Mean Corpuscular HGB Conc 32.3 g/dL (31.6-35.5); Mean Corpuscular Hemoglobin 30.3 pg (28.0-33.3); Mean Corpuscular Volume 93.8 fL (83.0-100.0); Mean Platelet Volume 10.3 fL (9.4-12.4); Platelet Count 535 K/mcL (140-400); Red Blood Count 4.22 M/mcL (3.82-4.97); Red Cell Distribution Width 13.2 % (11.5-14.5); White Blood Count 18.7 K/mcL (4.3-11.1)
[2019-06-08] MEDS: Aspirin Enteric Coated 81 MG Tablet PO SCH (07:39)
[2019-06-08] MEDS: amLODIPine 5 MG TABLET PO SCH ×2 (07:39→19:38)
[2019-06-08] MEDS: Multivit/Ca/Min/Fe/FA 1 TAB TABLET PO SCH (07:39)
[2019-06-08] MEDS: *HR* LORazepam 0.5 MG TABLET PO PRN (08:59)
[2019-06-08] MEDS: cefTRIAXone 1,000 MG in 0.9 % Sodium Chloride Mini Bag 100 ML IVPB SCH ×2 (11:38→21:46)
[2019-06-09] MEDS: *HR* Enoxaparin 40 MG/0.4 ML SYRINGE SQ SCH (04:57)
[2019-06-09] MEDS: amLODIPine 5 MG TABLET PO SCH ×2 (08:52→22:02)
[2019-06-09] MEDS: Multivit/Ca/Min/Fe/FA 1 TAB TABLET PO SCH (08:52)
[2019-06-09] MEDS: Aspirin Enteric Coated 81 MG Tablet PO SCH (08:52)
[2019-06-09 10:16] LABS: Basophils # 0.1 K/mcL (0.0-0.2); Basophils % 0.4 %; Eosinophils # 0.1 K/mcL (0.0-0.6); Eosinophils % 0.4 %; Hematocrit 39.3 % (35.3-44.9); Hemoglobin 12.7 g/dL (11.5-15.4); Immature Granulocytes % 0.3 % (0-4); Lymphocytes # 1.5 K/mcL (0.6-4.6); Lymphocytes % 10.8 %; Mean Corpuscular HGB Conc 32.3 g/dL (31.6-35.5); Mean Corpuscular Hemoglobin 30.2 pg (28.0-33.3); Mean Corpuscular Volume 93.6 fL (83.0-100.0); Mean Platelet Volume 9.7 fL (9.4-12.4); Monocytes # 1.2 K/mcL (0.0-1.3); Monocytes % 8.9 %; Platelet Count 553 K/mcL (140-400); Red Cell Distribution Width 13.2 % (11.5-14.5); Segmented Neutrophils % 79.2 %; White Blood Count 13.9 K/mcL (4.3-11.1)
[2019-06-09] MEDS: cefTRIAXone 1,000 MG in 0.9 % Sodium Chloride Mini Bag 100 ML IVPB SCH ×2 (11:28→22:01)
[2019-06-09] MEDS: *HR* LORazepam 0.5 MG TABLET PO PRN (22:09)
[2019-06-10] MEDS: *HR* Enoxaparin 40 MG/0.4 ML SYRINGE SQ SCH (06:53)
[2019-06-10] MEDS: Aspirin Enteric Coated 81 MG Tablet PO SCH (08:46)
[2019-06-10] MEDS: Multivit/Ca/Min/Fe/FA 1 TAB TABLET PO SCH (08:46)
[2019-06-10] MEDS: Acetaminophen 325 MG TABLET PO PRN ×2 (08:46→17:05)
[2019-06-10] MEDS: amLODIPine 5 MG TABLET PO SCH ×2 (08:46→20:28)
[2019-06-10] MEDS: cefTRIAXone 1,000 MG in 0.9 % Sodium Chloride Mini Bag 100 ML IVPB SCH (08:49)
[2019-06-10] MEDS: predniSONE 20 MG TABLET PO SCH (16:47)
[2019-06-10] MEDS ORDERED: MethylPREDNISolone 40 MG/ML VIAL IVP SCH (18:00)
[2019-06-10] MEDS: *HR* LORazepam 0.5 MG TABLET PO PRN (20:38)
[2019-06-11] MEDS: *HR* Enoxaparin 40 MG/0.4 ML SYRINGE SQ SCH (05:56)
[2019-06-11] MEDS: Aspirin Enteric Coated 81 MG Tablet PO SCH (08:18)
[2019-06-11] MEDS: amLODIPine 5 MG TABLET PO SCH (08:18)
[2019-06-11] MEDS: predniSONE 20 MG TABLET PO SCH (08:18)
[2019-06-11] MEDS: Multivit/Ca/Min/Fe/FA 1 TAB TABLET PO SCH (08:55)
[2019-06-11] MEDS: Acetaminophen 325 MG TABLET PO PRN ×2 (08:55→14:26)
[2019-06-11 11:39] VITALS: BP 131/78
[2019-06-11] MEDS ORDERED: cephALEXin 500 MG CAPSULE PO SCH (15:00)
== END 2019-06-11 14:53 | disposition other institution (70) | DRG 690 ==
LOC: INPGRE 19:45 → EMEROOGRE 19:45 → INPGRE 23:05 → SUATTDRO 06-08 10:01
PROVIDERS: ADMIT Internal Medicine; ATTEND Family Medicine

== ENCOUNTER 2019-06-11 14:22 | Inpatient (IN) ==
[2019-06-11] MEDS ORDERED: Ipratropium/Albuterol Neb 3 ML IH PRN (16:00)
[2019-06-11] MEDS ORDERED: Naloxone 0.4 MG/ML INJ IVP PRN (16:00)
[2019-06-11] MEDS: predniSONE 20 MG TABLET PO SCH (17:24)
[2019-06-11] MEDS: amLODIPine 5 MG TABLET PO SCH (20:41)
[2019-06-11] MEDS: cephALEXin 500 MG CAPSULE PO SCH (20:41)
[2019-06-11] MEDS: *HR* LORazepam 0.5 MG TABLET PO PRN (22:08)
[2019-06-12] MEDS: Acetaminophen 325 MG TABLET PO PRN ×3 (02:26→15:57)
[2019-06-12] MEDS: *HR* Enoxaparin 40 MG/0.4 ML SYRINGE SQ SCH (05:37)
[2019-06-12 05:58] LABS: BUN/Creatinine Ratio 23 (6-26); Blood Urea Nitrogen 12 mg/dL (8-23); Carbon Dioxide 38 mEq/L (23-29); Chloride 93 mEq/L (98-107); Glucose 117 mg/dL (70-105); Osmolality,Calculated 281 (280-300); Potassium 3.8 mEq/L (3.5-5.1); Sodium 135 mEq/L (136-145); eGFR For African Americans > 60 (> 60); eGFR For Non-African Americans > 60 (> 60)
[2019-06-12] MEDS: cephALEXin 500 MG CAPSULE PO SCH ×3 (08:41→21:20)
[2019-06-12] MEDS: Multivit/Ca/Min/Fe/FA 1 TAB TABLET PO SCH (08:41)
[2019-06-12] MEDS: Aspirin Enteric Coated 81 MG Tablet PO SCH (08:41)
[2019-06-12] MEDS: predniSONE 20 MG TABLET PO SCH (08:41)
[2019-06-12] MEDS: amLODIPine 5 MG TABLET PO SCH ×2 (08:41→21:20)
[2019-06-12] MEDS: *HR* LORazepam 0.5 MG TABLET PO PRN (21:29)
[2019-06-13] MEDS: *HR* Enoxaparin 40 MG/0.4 ML SYRINGE SQ SCH (03:52)
[2019-06-13] MEDS: Acetaminophen 325 MG TABLET PO PRN ×2 (03:52→18:31)
[2019-06-13] MEDS: predniSONE 20 MG TABLET PO SCH (09:21)
[2019-06-13] MEDS: cephALEXin 500 MG CAPSULE PO SCH ×3 (09:21→20:19)
[2019-06-13] MEDS: Multivit/Ca/Min/Fe/FA 1 TAB TABLET PO SCH (09:21)
[2019-06-13] MEDS: amLODIPine 5 MG TABLET PO SCH ×2 (09:21→20:19)
[2019-06-13] MEDS: Aspirin Enteric Coated 81 MG Tablet PO SCH (09:21)
[2019-06-13] MEDS ORDERED: Famotidine 20 MG TABLET PO PRN (10:07)
[2019-06-13] MEDS: Lactobacillus 1 EACH CAP.SPRINK PO SCH ×2 (12:45→20:19)
[2019-06-13] MEDS: *HR* LORazepam 0.5 MG TABLET PO PRN (20:25)
[2019-06-14] MEDS: *HR* Enoxaparin 40 MG/0.4 ML SYRINGE SQ SCH (04:34)
[2019-06-14 06:02] LABS: Basophils # 0.1 K/mcL (0.0-0.2); Basophils % 0.4 %; Eosinophils # 0.1 K/mcL (0.0-0.6); Eosinophils % 1.2 %; Hematocrit 41.5 % (35.3-44.9); Immature Granulocytes % 0.5 % (0-4); Mean Corpuscular HGB Conc 31.3 g/dL (31.6-35.5); Mean Corpuscular Hemoglobin 29.6 pg (28.0-33.3); Mean Corpuscular Volume 94.5 fL (83.0-100.0); Mean Platelet Volume 9.3 fL (9.4-12.4); Neutrophils # 7.3 K/mcL (1.6-8.9); Platelet Count 568 K/mcL (140-400); Red Blood Count 4.39 M/mcL (3.82-4.97); Red Cell Distribution Width 12.8 % (11.5-14.5); Segmented Neutrophils % 63.9 %; White Blood Count 11.4 K/mcL (4.3-11.1)
[2019-06-14 06:03] LABS: Lymphocytes # 2.9 K/mcL (0.6-4.6)
[2019-06-14 06:19] LABS: BUN/Creatinine Ratio 27 (6-26); Blood Urea Nitrogen 16 mg/dL (8-23); Calcium 8.8 mg/dL (8.6-10.3); Carbon Dioxide 39 mEq/L (23-29); Chloride 92 mEq/L (98-107); Glucose 88 mg/dL (70-105); Magnesium 2.3 mg/dL (1.6-2.6); Osmolality,Calculated 283 (280-300); Potassium 3.8 mEq/L (3.5-5.1); Sodium 136 mEq/L (136-145); eGFR For African Americans > 60 (> 60); eGFR For Non-African Americans > 60 (> 60)
[2019-06-14] MEDS: predniSONE 20 MG TABLET PO SCH (07:59)
[2019-06-14] MEDS: Aspirin Enteric Coated 81 MG Tablet PO SCH (07:59)
[2019-06-14] MEDS: Lactobacillus 1 EACH CAP.SPRINK PO SCH ×2 (07:59→20:42)
[2019-06-14] MEDS: amLODIPine 5 MG TABLET PO SCH ×2 (07:59→20:38)
[2019-06-14] MEDS: Acetaminophen 325 MG TABLET PO PRN (09:37)
[2019-06-14] MEDS: cephALEXin 500 MG CAPSULE PO SCH ×3 (09:37→20:41)
[2019-06-14] MEDS: Multivit/Ca/Min/Fe/FA 1 TAB TABLET PO SCH (09:37)
[2019-06-14] MEDS ORDERED: Simethicone 80 MG TAB.CHEW PO PRN (12:42)
[2019-06-14] MEDS: *HR* LORazepam 0.5 MG TABLET PO PRN (18:56)
[2019-06-15] MEDS: Acetaminophen 325 MG TABLET PO PRN (02:13)
[2019-06-15] MEDS: *HR* Enoxaparin 40 MG/0.4 ML SYRINGE SQ SCH (03:55)
[2019-06-15] MEDS: Multivit/Ca/Min/Fe/FA 1 TAB TABLET PO SCH (07:40)
[2019-06-15] MEDS: amLODIPine 5 MG TABLET PO SCH ×2 (07:40→20:03)
[2019-06-15] MEDS: cephALEXin 500 MG CAPSULE PO SCH (07:40)
[2019-06-15] MEDS: Aspirin Enteric Coated 81 MG Tablet PO SCH (07:40)
[2019-06-15] MEDS: Lactobacillus 1 EACH CAP.SPRINK PO SCH ×2 (09:39→20:06)
[2019-06-15] MEDS: predniSONE 10 MG TABLET PO SCH (16:14)
[2019-06-15] MEDS: *HR* LORazepam 0.5 MG TABLET PO PRN (20:06)
[2019-06-16] MEDS: *HR* Enoxaparin 40 MG/0.4 ML SYRINGE SQ SCH (05:36)
[2019-06-16] MEDS: Multivit/Ca/Min/Fe/FA 1 TAB TABLET PO SCH (08:01)
[2019-06-16] MEDS: predniSONE 10 MG TABLET PO SCH (08:01)
[2019-06-16] MEDS: amLODIPine 5 MG TABLET PO SCH ×2 (08:01→20:45)
[2019-06-16] MEDS: Aspirin Enteric Coated 81 MG Tablet PO SCH (08:01)
[2019-06-16] MEDS: Lactobacillus 1 EACH CAP.SPRINK PO SCH ×2 (08:01→20:47)
[2019-06-16] MEDS: Acetaminophen 325 MG TABLET PO PRN (13:42)
[2019-06-16] MEDS: *HR* LORazepam 0.5 MG TABLET PO PRN (20:46)
[2019-06-17] MEDS: Acetaminophen 325 MG TABLET PO PRN ×2 (00:28→10:06)
[2019-06-17] MEDS: *HR* Enoxaparin 40 MG/0.4 ML SYRINGE SQ SCH (07:21)
[2019-06-17 07:31] VITALS: BP 147/80
[2019-06-17] MEDS: Multivit/Ca/Min/Fe/FA 1 TAB TABLET PO SCH (07:59)
[2019-06-17] MEDS: Aspirin Enteric Coated 81 MG Tablet PO SCH (07:59)
[2019-06-17] MEDS: predniSONE 10 MG TABLET PO SCH (07:59)
[2019-06-17] MEDS: amLODIPine 5 MG TABLET PO SCH (08:00)
[2019-06-17] MEDS: Lactobacillus 1 EACH CAP.SPRINK PO SCH (08:00)
== END 2019-06-17 15:15 | disposition home health service (06) | DRG 690 ==
LOC: INPGRE 14:55
PROVIDERS: ADMIT Family Medicine; ATTEND Family Medicine

== ENCOUNTER 2019-07-03 17:46 | Inpatient (IN) ==
[2019-07-03 18:38] LABS: Basophils # 0.1 K/mcL (0.0-0.2); Basophils % 0.5 %; Eosinophils # 0.2 K/mcL (0.0-0.6); Eosinophils % 1.6 %; Hematocrit 38.7 % (35.3-44.9); Hemoglobin 12.4 g/dL (11.5-15.4); Immature Granulocytes % 0.4 % (0-4); Lymphocytes # 2.9 K/mcL (0.6-4.6); Lymphocytes % 20.5 %; Mean Corpuscular Hemoglobin 30.2 pg (28.0-33.3); Mean Corpuscular Volume 94.4 fL (83.0-100.0); Mean Platelet Volume 9.7 fL (9.4-12.4); Monocytes # 1.2 K/mcL (0.0-1.3); Monocytes % 8.7 %; Platelet Count 344 K/mcL (140-400); Segmented Neutrophils % 68.3 %
[2019-07-03 18:45] LABS: Neutrophils # 9.6 K/mcL (1.6-8.9)
[2019-07-03 18:47] LABS: VBG HCO3 36 mEq/L (21-27); VBG PCO2 53 mmHg (41-51); VBG PH 7.44 pH Units (7.32-7.42); VBG PO2 39 mmHg (25-50)
[2019-07-03 18:56] LABS: Troponin I < 0.03 ng/mL (< 0.04)
[2019-07-03 18:57] LABS: Alanine Aminotransferase 16 Units/L (7-52); Albumin 3.4 g/dL (3.5-5.7); Alkaline Phosphatase 63 Units/L (34-104); Aspartate Amino Transferase 14 Units/L (13-39); BUN/Creatinine Ratio 29 (6-26); Bilirubin,Indirect 0.4 mg/dL (0.0-1.0); Bilirubin,Total 0.4 mg/dL (0.3-1.0); Blood Urea Nitrogen 20 mg/dL (8-23); Calcium 8.9 mg/dL (8.6-10.3); Carbon Dioxide 36 mEq/L (23-29); Chloride 97 mEq/L (98-107); Globulin 3.3 g/dL (2.4-3.5); Glucose 114 mg/dL (70-105); Osmolality,Calculated 289 (280-300); Potassium 3.6 mEq/L (3.5-5.1); Sodium 138 mEq/L (136-145); Total Protein 6.7 g/dL (6.4-8.9); eGFR For African Americans > 60 (> 60); eGFR For Non-African Americans > 60 (> 60)
[2019-07-03] MEDS ORDERED: predniSONE 20 MG TABLET PO SCH (20:15)
[2019-07-03] MEDS ORDERED: levoFLOXacin 750 MG/150 ML 750 MG/150 ML BAG IVPB SCH ×2 (20:15→22:00)
[2019-07-03] MEDS ORDERED: Naloxone 0.4 MG/ML INJ IVP PRN (21:39)
[2019-07-03 22:04] LABS: Bilirubin,Urine Negative (Negative); Blood,Urine Small (Negative); Clarity,Urine Clear (Clear); Color,Urine Yellow (Yellow); Glucose,Urine (UA) Normal (Normal); Ketones,Urine Negative (Negative); Leukocyte Esterase,Urine Small (Negative); Nitrite,Urine Negative (Negative); Protein,Urine Negative (Neg-Trace); Specific Gravity,Urine 1.015 (1.010-1.025); Urobilinogen,Urine Normal (Normal)
[2019-07-03] MEDS: predniSONE 20 MG TABLET PO SCH (22:09)
[2019-07-03 22:13] LABS: Bacteria,Urine Many per hpf (None-Few); RBC,Urine 0-3 per hpf (0-3); Squamous Epithelial Cell,Urine Few per lpf (None-Few)
[2019-07-03] MEDS ORDERED: Melatonin 3 MG TABLET PO PRN (23:54)
[2019-07-04] MEDS: predniSONE 20 MG TABLET PO SCH (07:56)
[2019-07-04] MEDS ORDERED: *HR* LORazepam 0.5 MG TABLET PO PRN (10:19)
[2019-07-04] MEDS: amLODIPine 5 MG TABLET PO SCH ×2 (11:48→20:29)
[2019-07-04] MEDS: Aspirin Enteric Coated 81 MG Tablet PO SCH (11:48)
[2019-07-04 14:27] LABS: Adenovirus Not Detected (Not Detect); Bordetella Pertussis Not Detected (Not Detect); Chlamydophila pneumoniae Not Detected (Not Detect); Coronavirus 229E Not Detected (Not Detect); Coronavirus HKU1 Not Detected (Not Detect); Coronavirus NL63 Not Detected (Not Detect); Coronavirus OC43 Not Detected (Not Detect); Human Metapneumovirus Not Detected (Not Detect); Human Rhinovirus/Enterovirus Not Detected (Not Detect); Influenza A Subtype 2009 H1 Not Detected (Not Detect); Influenza B Not Detected (Not Detect); Mycoplasma pneumoniae Not Detected (Not Detect); Parainfluenza Virus 1 Not Detected (Not Detect); Parainfluenza Virus 2 Not Detected (Not Detect); Parainfluenza Virus 3 Not Detected (Not Detect); Parainfluenza Virus 4 Not Detected (Not Detect); Respiratory Syncytial Virus Not Detected (Not Detect)
[2019-07-04] MEDS: Acetaminophen 325 MG TABLET PO PRN (20:29)
[2019-07-05] MEDS: Acetaminophen 325 MG TABLET PO PRN ×3 (02:44→19:43)
[2019-07-05 05:40] LABS: Basophils # 0.1 K/mcL (0.0-0.2); Basophils % 0.7 %; Eosinophils # 0.2 K/mcL (0.0-0.6); Eosinophils % 1.5 %; Hematocrit 38.2 % (35.3-44.9); Immature Granulocytes % 0.3 % (0-4); Lymphocytes % 25.8 %; Mean Corpuscular HGB Conc 31.4 g/dL (31.6-35.5); Mean Corpuscular Hemoglobin 29.7 pg (28.0-33.3); Mean Corpuscular Volume 94.6 fL (83.0-100.0); Mean Platelet Volume 9.6 fL (9.4-12.4); Monocytes # 0.9 K/mcL (0.0-1.3); Platelet Count 324 K/mcL (140-400); Red Blood Count 4.04 M/mcL (3.82-4.97); Red Cell Distribution Width 13.8 % (11.5-14.5); Segmented Neutrophils % 63.7 %; White Blood Count 11.7 K/mcL (4.3-11.1)
[2019-07-05 05:46] LABS: Neutrophils # 7.5 K/mcL (1.6-8.9)
[2019-07-05 06:01] LABS: BUN/Creatinine Ratio 23 (6-26); Blood Urea Nitrogen 14 mg/dL (8-23); Calcium 8.4 mg/dL (8.6-10.3); Carbon Dioxide 37 mEq/L (23-29); Chloride 99 mEq/L (98-107); Glucose 99 mg/dL (70-105); Osmolality,Calculated 289 (280-300); Potassium 3.7 mEq/L (3.5-5.1); Sodium 139 mEq/L (136-145); eGFR For African Americans > 60 (> 60); eGFR For Non-African Americans > 60 (> 60)
[2019-07-05] MEDS: Aspirin Enteric Coated 81 MG Tablet PO SCH (08:52)
[2019-07-05] MEDS: amLODIPine 5 MG TABLET PO SCH ×2 (08:53→19:42)
[2019-07-05] MEDS: predniSONE 20 MG TABLET PO SCH (08:53)
[2019-07-05] MEDS: levoFLOXacin 750 MG/150 ML 750 MG/150 ML BAG IVPB SCH (21:54)
[2019-07-06] MEDS: Aspirin Enteric Coated 81 MG Tablet PO SCH (09:47)
[2019-07-06] MEDS: predniSONE 20 MG TABLET PO SCH (09:47)
[2019-07-06] MEDS: amLODIPine 5 MG TABLET PO SCH ×2 (09:47→20:36)
[2019-07-06] MEDS: Acetaminophen 325 MG TABLET PO PRN ×2 (09:51→16:39)
[2019-07-06] MEDS: Cefdinir 300 MG CAPSULE PO SCH ×2 (15:49→20:36)
[2019-07-06] MEDS: MetroNIDAZOLE 500 MG/100 ML 500 MG/100 ML BAG IVPB SCH (16:38)
[2019-07-07] MEDS: MetroNIDAZOLE 500 MG/100 ML 500 MG/100 ML BAG IVPB SCH ×3 (00:18→15:25)
[2019-07-07] MEDS: Acetaminophen 325 MG TABLET PO PRN ×4 (03:33→21:19)
[2019-07-07] MEDS: amLODIPine 5 MG TABLET PO SCH ×2 (08:13→21:18)
[2019-07-07] MEDS: Cefdinir 300 MG CAPSULE PO SCH ×2 (08:13→21:20)
[2019-07-07] MEDS: Aspirin Enteric Coated 81 MG Tablet PO SCH (08:13)
[2019-07-07] MEDS: predniSONE 20 MG TABLET PO SCH (10:49)
[2019-07-07 11:57] LABS: Hematocrit 42.5 % (35.3-44.9); Mean Corpuscular HGB Conc 32.5 g/dL (31.6-35.5); Mean Corpuscular Hemoglobin 30.5 pg (28.0-33.3); Mean Corpuscular Volume 93.8 fL (83.0-100.0); Mean Platelet Volume 9.4 fL (9.4-12.4); Platelet Count 392 K/mcL (140-400); Red Blood Count 4.53 M/mcL (3.82-4.97); Red Cell Distribution Width 14.3 % (11.5-14.5)
[2019-07-07 12:00] LABS: White Blood Count 14.8 K/mcL (4.3-11.1)
[2019-07-07 12:01] LABS: Hemoglobin 13.8 g/dL (11.5-15.4)
[2019-07-07 12:09] LABS: Alanine Aminotransferase 28 Units/L (7-52); Albumin 3.3 g/dL (3.5-5.7); Alkaline Phosphatase 57 Units/L (34-104); Aspartate Amino Transferase 24 Units/L (13-39); BUN/Creatinine Ratio 22 (6-26); Bilirubin,Total 0.4 mg/dL (0.3-1.0); Blood Urea Nitrogen 17 mg/dL (8-23); Calcium 8.6 mg/dL (8.6-10.3); Carbon Dioxide 36 mEq/L (23-29); Chloride 97 mEq/L (98-107); Globulin 3.4 g/dL (2.4-3.5); Glucose 94 mg/dL (70-105); Magnesium 2.2 mg/dL (1.6-2.6); Osmolality,Calculated 283 (280-300); Potassium 3.3 mEq/L (3.5-5.1); Sodium 136 mEq/L (136-145); Total Protein 6.7 g/dL (6.4-8.9); eGFR For African Americans > 60 (> 60); eGFR For Non-African Americans > 60 (> 60)
[2019-07-07] MEDS ORDERED: 0.9 % Sodium Chloride 1,000 ML IVC SCH (15:00)
[2019-07-07] MEDS: 0.9 % Sodium Chloride w KCl 20 MEQ/1,000 ML MLS IVC SCH (18:10)
[2019-07-07 18:59] LABS: C-Reactive Protein 14 mg/L (Less than 10)
[2019-07-07] MEDS: levoFLOXacin 750 MG/150 ML 750 MG/150 ML BAG IVPB SCH (21:13)
[2019-07-08] MEDS: MetroNIDAZOLE 500 MG/100 ML 500 MG/100 ML BAG IVPB SCH ×2 (00:15→16:05)
[2019-07-08] MEDS: Acetaminophen 325 MG TABLET PO PRN ×3 (03:17→19:57)
[2019-07-08 06:05] LABS: Hematocrit 39.9 % (35.3-44.9); Hemoglobin 12.7 g/dL (11.5-15.4); Mean Corpuscular HGB Conc 31.8 g/dL (31.6-35.5); Mean Corpuscular Hemoglobin 29.7 pg (28.0-33.3); Mean Corpuscular Volume 93.4 fL (83.0-100.0); Mean Platelet Volume 9.6 fL (9.4-12.4); Platelet Count 366 K/mcL (140-400); Red Blood Count 4.27 M/mcL (3.82-4.97); Red Cell Distribution Width 14.4 % (11.5-14.5); White Blood Count 13.5 K/mcL (4.3-11.1)
[2019-07-08 06:47] LABS: Alanine Aminotransferase 20 Units/L (7-52); Albumin 3.1 g/dL (3.5-5.7); Alkaline Phosphatase 53 Units/L (34-104); Aspartate Amino Transferase 14 Units/L (13-39); BUN/Creatinine Ratio 19 (6-26); Bilirubin,Total 0.5 mg/dL (0.3-1.0); Blood Urea Nitrogen 15 mg/dL (8-23); Calcium 8.5 mg/dL (8.6-10.3); Carbon Dioxide 35 mEq/L (23-29); Chloride 100 mEq/L (98-107); Globulin 3.1 g/dL (2.4-3.5); Glucose 93 mg/dL (70-105); Magnesium 2.1 mg/dL (1.6-2.6); Osmolality,Calculated 289 (280-300); Potassium 4.4 mEq/L (3.5-5.1); Sodium 139 mEq/L (136-145); Total Protein 6.2 g/dL (6.4-8.9); eGFR For African Americans > 60 (> 60); eGFR For Non-African Americans > 60 (> 60)
[2019-07-08] MEDS: amLODIPine 5 MG TABLET PO SCH ×2 (08:45→19:57)
[2019-07-08] MEDS: 0.9 % Sodium Chloride w KCl 20 MEQ/1,000 ML MLS IVC SCH (08:45)
[2019-07-08] MEDS: Cefdinir 300 MG CAPSULE PO SCH (08:45)
[2019-07-08] MEDS: Aspirin Enteric Coated 81 MG Tablet PO SCH (08:45)
[2019-07-08] MEDS ORDERED: metroNIDAZOLE 500 MG TABLET PO SCH (09:00)
[2019-07-08] MEDS: Lactobacillus 1 EACH CAP.SPRINK PO SCH (19:58)
[2019-07-09] MEDS: MetroNIDAZOLE 500 MG/100 ML 500 MG/100 ML BAG IVPB SCH ×2 (00:03→07:44)
[2019-07-09] MEDS: Acetaminophen 325 MG TABLET PO PRN ×3 (02:19→15:05)
[2019-07-09] MEDS: Aspirin Enteric Coated 81 MG Tablet PO SCH (07:45)
[2019-07-09] MEDS: amLODIPine 5 MG TABLET PO SCH (07:45)
[2019-07-09] MEDS: Lactobacillus 1 EACH CAP.SPRINK PO SCH (07:45)
[2019-07-09 11:35] VITALS: BP 123/73
[2019-07-09 12:25] LABS: Hemoglobin 13.7 g/dL (11.5-15.4); Mean Corpuscular HGB Conc 31.9 g/dL (31.6-35.5); Mean Corpuscular Hemoglobin 29.7 pg (28.0-33.3); Mean Corpuscular Volume 93.1 fL (83.0-100.0); Mean Platelet Volume 9.5 fL (9.4-12.4); Platelet Count 402 K/mcL (140-400); Red Blood Count 4.62 M/mcL (3.82-4.97); Red Cell Distribution Width 14.6 % (11.5-14.5); White Blood Count 13.8 K/mcL (4.3-11.1)
== END 2019-07-09 15:38 | disposition short-term general hospital (02) | DRG 392 ==
LOC: EMEROOGRE 17:46 → INPGRE 17:46
PROVIDERS: ADMIT Family Medicine; ATTEND Family Medicine

== ENCOUNTER 2019-09-28 19:29 | Observation (INO) ==
[2019-09-28] MEDS ORDERED: methylPREDNISolone 125 MG/2 ML VIAL IVP ONE (20:01)
[2019-09-28] MEDS ORDERED: 0.9 % Sodium Chloride 1,000 ML IVC ONE (20:01)
[2019-09-28] MEDS ORDERED: Levalbuterol Neb 1.25 MG/3 ML IH STA (20:03)
[2019-09-28] MEDS ORDERED: Levalbuterol Neb 1.25 MG/3 ML ONE ×2 (20:10→22:43)
[2019-09-28 20:32] LABS: Basophils # 0.1 K/mcL (0.0-0.2); Basophils % 0.4 %; Eosinophils # 0.1 K/mcL (0.0-0.6); Eosinophils % 0.5 %; Hematocrit 39.8 % (35.3-44.9); Hemoglobin 12.5 g/dL (11.5-15.4); Immature Granulocytes % 0.4 % (0-4); Lymphocytes # 0.9 K/mcL (0.6-4.6); Lymphocytes % 5.6 %; Mean Corpuscular HGB Conc 31.4 g/dL (31.6-35.5); Mean Corpuscular Hemoglobin 29.8 pg (28.0-33.3); Mean Corpuscular Volume 94.8 fL (83.0-100.0); Mean Platelet Volume 9.9 fL (9.4-12.4); Monocytes # 0.7 K/mcL (0.0-1.3); Monocytes % 4.6 %; Platelet Count 336 K/mcL (140-400); Red Cell Distribution Width 13.1 % (11.5-14.5); Segmented Neutrophils % 88.5 %; White Blood Count 15.3 K/mcL (4.3-11.1)
[2019-09-28 20:36] LABS: Neutrophils # 13.5 K/mcL (1.6-8.9)
[2019-09-28 20:49] LABS: Troponin I < 0.03 ng/mL (< 0.04)
[2019-09-28 20:50] LABS: Alanine Aminotransferase 12 Units/L (7-52); Albumin 3.8 g/dL (3.5-5.7); Albumin/Globulin Ratio 1.1 (1.1-2.2); Alkaline Phosphatase 73 Units/L (34-104); Aspartate Amino Transferase 17 Units/L (13-39); BUN/Creatinine Ratio 29 (6-26); Bilirubin,Direct 0.2 mg/dL (0.0-0.2); Bilirubin,Indirect 0.4 mg/dL (0.0-1.0); Bilirubin,Total 0.6 mg/dL (0.3-1.0); Blood Urea Nitrogen 17 mg/dL (8-23); Calcium 9.1 mg/dL (8.6-10.3); Carbon Dioxide 37 mEq/L (23-29); Chloride 96 mEq/L (98-107); Globulin 3.4 g/dL (2.4-3.5); Glucose 106 mg/dL (70-105); Osmolality,Calculated 290 (280-300); Potassium 3.4 mEq/L (3.5-5.1); Sodium 139 mEq/L (136-145); Total Protein 7.2 g/dL (6.4-8.9); eGFR For African Americans > 60 (> 60); eGFR For Non-African Americans > 60 (> 60)
[2019-09-28] MEDS ORDERED: MOM Conc 10 ML UD.LIQ PO PRN (22:43)
[2019-09-28] MEDS ORDERED: Ondansetron 4 MG/2 ML VIAL IVP PRN (22:43)
[2019-09-28] MEDS ORDERED: *HR* LORazepam 0.5 MG TABLET PO PRN (22:43)
[2019-09-28] MEDS ORDERED: Naloxone 0.4 MG/ML INJ IVP PRN (22:43)
[2019-09-29] MEDS ORDERED: Acetaminophen 325 MG TABLET PO PRN (02:18)
[2019-09-29] MEDS: MethylPREDNISolone 40 MG/ML VIAL IVP SCH ×2 (04:18→08:34)
[2019-09-29] MEDS: cefTRIAXone 2,000 MG in Water for inj. (sterile) 20 ML IVP SCH (04:18)
[2019-09-29 04:24] LABS: Bilirubin,Urine Negative (Negative); Blood,Urine Large (Negative); Clarity,Urine Slightly Cloudy (Clear); Glucose,Urine (UA) Normal (Normal); Ketones,Urine Negative (Negative); Leukocyte Esterase,Urine Small (Negative); Nitrite,Urine Negative (Negative); Protein,Urine 30 mg/dL (Neg-Trace); Specific Gravity,Urine 1.025 (1.010-1.025); Urobilinogen,Urine Normal (Normal)
[2019-09-29 04:28] LABS: Bacteria,Urine Few per hpf (None-Few); Color,Urine Yellow (Yellow); Squamous Epithelial Cell,Urine Few per lpf (None-Few)
[2019-09-29 05:47] LABS: Basophils % 0.1 %; Hematocrit 37.4 % (35.3-44.9); Hemoglobin 11.7 g/dL (11.5-15.4); Immature Granulocytes % 0.6 % (0-4); Lymphocytes # 0.8 K/mcL (0.6-4.6); Lymphocytes % 7.5 %; Mean Corpuscular HGB Conc 31.3 g/dL (31.6-35.5); Mean Corpuscular Hemoglobin 30.2 pg (28.0-33.3); Mean Corpuscular Volume 96.4 fL (83.0-100.0); Monocytes # 0.1 K/mcL (0.0-1.3); Monocytes % 0.6 %; Neutrophils # 9.1 K/mcL (1.6-8.9); Platelet Count 297 K/mcL (140-400); Red Blood Count 3.88 M/mcL (3.82-4.97); Red Cell Distribution Width 12.9 % (11.5-14.5); Segmented Neutrophils % 91.2 %
[2019-09-29] MEDS: Doxycycline 100 MG in 0.9 % Sodium Chloride Mini Bag 100 ML IVPB SCH ×2 (06:02→17:52)
[2019-09-29 06:03] LABS: Alanine Aminotransferase 13 Units/L (7-52); Alkaline Phosphatase 58 Units/L (34-104); Aspartate Amino Transferase 17 Units/L (13-39); BUN/Creatinine Ratio 26 (6-26); Bilirubin,Total 0.3 mg/dL (0.3-1.0); Blood Urea Nitrogen 18 mg/dL (8-23); Calcium 8.2 mg/dL (8.6-10.3); Carbon Dioxide 37 mEq/L (23-29); Chloride 98 mEq/L (98-107); Glucose 168 mg/dL (70-105); Osmolality,Calculated 296 (280-300); Potassium 3.9 mEq/L (3.5-5.1); Sodium 140 mEq/L (136-145); eGFR For African Americans > 60 (> 60); eGFR For Non-African Americans > 60 (> 60)
[2019-09-29] MEDS ORDERED: *HR* Enoxaparin 40 MG/0.4 ML SYRINGE SQ SCH (07:00)
[2019-09-29] MEDS: Multivit/Ca/Min/Fe/FA 1 TAB TABLET PO SCH (08:33)
[2019-09-29] MEDS: Aspirin Enteric Coated 81 MG Tablet PO SCH (08:33)
[2019-09-29] MEDS: amLODIPine 5 MG TABLET PO SCH ×2 (08:34→19:35)
[2019-09-29] MEDS: *HR* Enoxaparin 40 MG/0.4 ML SYRINGE SQ SCH (08:42)
[2019-09-29 18:53] LABS: Estimated Average Glucose 137 mg/dl
[2019-09-30] MEDS: cefTRIAXone 2,000 MG in Water for inj. (sterile) 20 ML IVP SCH (04:10)
[2019-09-30 05:34] LABS: Hematocrit 36.5 % (35.3-44.9); Hemoglobin 11.3 g/dL (11.5-15.4); Mean Corpuscular Hemoglobin 30.4 pg (28.0-33.3); Mean Corpuscular Volume 98.1 fL (83.0-100.0); Mean Platelet Volume 10.3 fL (9.4-12.4); Platelet Count 338 K/mcL (140-400); Red Blood Count 3.72 M/mcL (3.82-4.97); White Blood Count 16.1 K/mcL (4.3-11.1)
[2019-09-30 05:49] LABS: BUN/Creatinine Ratio 36 (6-26); Blood Urea Nitrogen 27 mg/dL (8-23); Calcium 8.3 mg/dL (8.6-10.3); Carbon Dioxide 35 mEq/L (23-29); Chloride 100 mEq/L (98-107); Glucose 106 mg/dL (70-105); Magnesium 2.1 mg/dL (1.6-2.6); Osmolality,Calculated 294 (280-300); Potassium 4.1 mEq/L (3.5-5.1); Sodium 139 mEq/L (136-145); eGFR For African Americans > 60 (> 60); eGFR For Non-African Americans > 60 (> 60)
[2019-09-30] MEDS: Doxycycline 100 MG in 0.9 % Sodium Chloride Mini Bag 100 ML IVPB SCH (05:49)
[2019-09-30] MEDS: amLODIPine 5 MG TABLET PO SCH (07:54)
[2019-09-30] MEDS: Multivit/Ca/Min/Fe/FA 1 TAB TABLET PO SCH (07:54)
[2019-09-30] MEDS: Aspirin Enteric Coated 81 MG Tablet PO SCH (07:54)
[2019-09-30] MEDS: *HR* Enoxaparin 40 MG/0.4 ML SYRINGE SQ SCH (08:00)
[2019-09-30] MEDS ORDERED: predniSONE 20 MG TABLET PO SCH (09:00)
[2019-09-30 11:56] VITALS: BP 128/75
[2019-09-30] MEDS ORDERED: Cefdinir 300 MG CAPSULE PO SCH (21:00)
== END 2019-09-30 14:50 | disposition home health service (06) ==
LOC: EMEROOGRE 19:29 → INPGRE 19:29 → SUATTDRO 22:24 → INPGRE 22:36
PROVIDERS: ADMIT Internal Medicine; ATTEND Family Medicine

== ENCOUNTER 2019-12-12 20:02 | Inpatient (IN) ==
[2019-12-12] MEDS ORDERED: 0.9 % Sodium Chloride 1,000 ML IVC ONE (20:34)
[2019-12-12 21:29] LABS: Basophils % 0.1 %; Hematocrit 40.7 % (35.3-44.9); Hemoglobin 12.2 g/dL (11.5-15.4); Immature Granulocytes % 0.7 % (0-4); Lymphocytes # 1.6 K/mcL (0.6-4.6); Lymphocytes % 12.6 %; Mean Corpuscular Hemoglobin 30.5 pg (28.0-33.3); Mean Corpuscular Volume 101.8 fL (83.0-100.0); Mean Platelet Volume 10.6 fL (9.4-12.4); Monocytes # 0.5 K/mcL (0.0-1.3); Monocytes % 3.8 %; Neutrophils # 10.5 K/mcL (1.6-8.9); Platelet Count 358 K/mcL (140-400); Red Cell Distribution Width 14.7 % (11.5-14.5); Segmented Neutrophils % 82.8 %; White Blood Count 12.7 K/mcL (4.3-11.1)
[2019-12-12 21:40] LABS: Magnesium 2.4 mg/dL (1.6-2.6)
[2019-12-12 21:42] LABS: Troponin I 0.03 ng/mL (< 0.04)
[2019-12-12 21:43] LABS: VBG HCO3 46 mEq/L (21-27); VBG PCO2 81 mmHg (41-51); VBG PH 7.37 pH Units (7.32-7.42); VBG PO2 47 mmHg (25-50)
[2019-12-12 21:53] LABS: Alanine Aminotransferase 12 Units/L (7-52); Albumin 3.8 g/dL (3.5-5.7); Alkaline Phosphatase 58 Units/L (34-104); Aspartate Amino Transferase 14 Units/L (13-39); BUN/Creatinine Ratio 35 (6-26); Bilirubin,Total 0.4 mg/dL (0.3-1.0); Blood Urea Nitrogen 22 mg/dL (8-23); Calcium 9.6 mg/dL (8.6-10.3); Chloride 86 mEq/L (98-107); Globulin 3.9 g/dL (2.4-3.5); Glucose 247 mg/dL (70-105); Osmolality,Calculated 304 (280-300); Potassium 3.8 mEq/L (3.5-5.1); Sodium 141 mEq/L (136-145); Total Protein 7.7 g/dL (6.4-8.9); eGFR For African Americans > 60 (> 60); eGFR For Non-African Americans > 60 (> 60)
[2019-12-12 21:55] LABS: Carbon Dioxide > 40 mEq/L (23-29)
[2019-12-12 21:58] LABS: Bilirubin,Urine Negative (Negative); Blood,Urine Moderate (Negative); Clarity,Urine Slightly Cloudy (Clear); Color,Urine Yellow (Yellow); Glucose,Urine (UA) Normal (Normal); Ketones,Urine Negative (Negative); Leukocyte Esterase,Urine Moderate (Negative); Nitrite,Urine Positive (Negative); PH,Urine 5.5 pH Units (5.0-8.0); Protein,Urine 100 mg/dL (Neg-Trace); Specific Gravity,Urine 1.025 (1.010-1.025); Urobilinogen,Urine Normal (Normal)
[2019-12-12 21:59] LABS: Bacteria,Urine Moderate per hpf (None-Few); Hyaline Casts,Urine Few per lpf (None Seen); Squamous Epithelial Cell,Urine Few per hpf (None-Few)
[2019-12-12] MEDS ORDERED: Acetaminophen 325 MG TABLET PO PRN (22:18)
[2019-12-12] MEDS ORDERED: *HR* LORazepam 0.5 MG TABLET PO PRN (22:18)
[2019-12-12] MEDS ORDERED: Naloxone 0.4 MG/ML INJ IVP PRN (22:18)
[2019-12-12] MEDS ORDERED: Ondansetron 4 MG/2 ML VIAL IVP PRN (22:18)
[2019-12-12] MEDS: 0.9 % Sodium Chloride 1,000 ML IVC SCH (22:36)
[2019-12-13] MEDS ORDERED: *HR* Dextrose 50 % in Water (Vial) 50 ML VIAL IVP PRN (05:59)
[2019-12-13] MEDS ORDERED: D5% in Water 1,000 ML IVC PRN (05:59)
[2019-12-13] MEDS ORDERED: Dextrose Gel 15 GM/37.5 ML TUBE PO PRN ×2 (05:59)
[2019-12-13] MEDS: Insulin LISPRO 300 UNITS/3 ML VIAL SQ SCH ×3 (06:48→18:06)
[2019-12-13] MEDS: 0.9 % Sodium Chloride 1,000 ML IVC SCH (07:12)
[2019-12-13] MEDS: amLODIPine 5 MG TABLET PO SCH ×2 (08:51→23:29)
[2019-12-13] MEDS: Multivit/Ca/Min/Fe/FA 1 TAB TABLET PO SCH (08:51)
[2019-12-13] MEDS: Aspirin Enteric Coated 81 MG Tablet PO SCH (08:51)
[2019-12-13] MEDS: Lactobacillus 1 EACH CAP.SPRINK PO SCH (08:51)
[2019-12-13] MEDS ORDERED: predniSONE 20 MG TABLET PO SCH (09:00)
[2019-12-13] MEDS: Ipratropium/Albuterol Neb 3 ML IH SCH ×2 (16:08→22:15)
[2019-12-13 19:07] LABS: ABG Base Excess 18 mEq/L (-2 to 3); ABG HCO3 52 mEq/L (21-27); ABG Oxygen Saturation 89 % (95-98); ABG PCO2 132 mmHg (35-45); ABG PO2 76 mmHg (85-104); ABG TCO2 > 50 mEq/L (20-26)
[2019-12-13 19:19] LABS: Basophils % 0.1 %; Hematocrit 38.4 % (35.3-44.9); Hemoglobin 11.1 g/dL (11.5-15.4); Immature Granulocytes % 1.1 % (0-4); Lymphocytes # 1.4 K/mcL (0.6-4.6); Mean Corpuscular HGB Conc 28.9 g/dL (31.6-35.5); Mean Corpuscular Hemoglobin 30.3 pg (28.0-33.3); Mean Corpuscular Volume 104.9 fL (83.0-100.0); Mean Platelet Volume 10.4 fL (9.4-12.4); Monocytes # 0.6 K/mcL (0.0-1.3); Monocytes % 3.8 %; Neutrophils # 13.1 K/mcL (1.6-8.9); Platelet Count 305 K/mcL (140-400); Red Blood Count 3.66 M/mcL (3.82-4.97); Red Cell Distribution Width 14.7 % (11.5-14.5); White Blood Count 15.2 K/mcL (4.3-11.1)
[2019-12-13 19:42] LABS: BUN/Creatinine Ratio 25 (6-26); Blood Urea Nitrogen 12 mg/dL (8-23); Calcium 8.6 mg/dL (8.6-10.3); Chloride 90 mEq/L (98-107); Glucose 151 mg/dL (70-105); Osmolality,Calculated 295 (280-300); Potassium 3.6 mEq/L (3.5-5.1); Sodium 141 mEq/L (136-145); eGFR For African Americans > 60 (> 60); eGFR For Non-African Americans > 60 (> 60)
[2019-12-13 19:44] LABS: Carbon Dioxide > 40 mEq/L (23-29)
[2019-12-13 21:19] LABS: ABG Base Excess 23 mEq/L (-2 to 3); ABG HCO3 55 mEq/L (21-27); ABG Oxygen Saturation 97 % (95-98); ABG PCO2 108 mmHg (35-45); ABG PH 7.31 pH Units (7.32-7.45); ABG PO2 111 mmHg (85-104); ABG TCO2 > 50 mEq/L (20-26)
[2019-12-13 23:42] LABS: ABG Base Excess 19 mEq/L (-2 to 3); ABG HCO3 50 mEq/L (21-27); ABG Oxygen Saturation 91 % (95-98); ABG PCO2 100 mmHg (35-45); ABG PH 7.31 pH Units (7.32-7.45); ABG PO2 72 mmHg (85-104); ABG TCO2 > 50 mEq/L (20-26)
[2019-12-14] MEDS: methylPREDNISolone 125 MG/2 ML VIAL IVP SCH ×3 (00:31→17:17)
[2019-12-14] MEDS: Insulin LISPRO 300 UNITS/3 ML VIAL SQ SCH ×4 (03:05→17:15)
[2019-12-14] MEDS: Ipratropium/Albuterol Neb 3 ML IH SCH ×3 (03:46→14:49)
[2019-12-14 05:35] LABS: ABG Base Excess 23 mEq/L (-2 to 3); ABG HCO3 48 mEq/L (21-27); ABG Oxygen Saturation 99 % (95-98); ABG PCO2 53 mmHg (35-45); ABG PH 7.56 pH Units (7.32-7.45); ABG PO2 121 mmHg (85-104); ABG TCO2 49 mEq/L (20-26)
[2019-12-14 05:52] LABS: Basophils % 0.1 %; Hematocrit 36.7 % (35.3-44.9); Hemoglobin 10.9 g/dL (11.5-15.4); Immature Granulocytes % 0.6 % (0-4); Lymphocytes % 7.1 %; Mean Corpuscular HGB Conc 29.7 g/dL (31.6-35.5); Mean Corpuscular Hemoglobin 30.5 pg (28.0-33.3); Mean Corpuscular Volume 102.8 fL (83.0-100.0); Mean Platelet Volume 10.7 fL (9.4-12.4); Monocytes # 0.2 K/mcL (0.0-1.3); Monocytes % 1.1 %; Neutrophils # 12.7 K/mcL (1.6-8.9); Platelet Count 240 K/mcL (140-400); Red Blood Count 3.57 M/mcL (3.82-4.97); Red Cell Distribution Width 14.6 % (11.5-14.5); Segmented Neutrophils % 91.1 %; White Blood Count 13.9 K/mcL (4.3-11.1)
[2019-12-14 06:26] LABS: BUN/Creatinine Ratio 26 (6-26); Blood Urea Nitrogen 16 mg/dL (8-23); Calcium 9.1 mg/dL (8.6-10.3); Carbon Dioxide > 45 mEq/L (23-29); Chloride 89 mEq/L (98-107); Glucose 115 mg/dL (70-105); Osmolality,Calculated 298 (280-300); Potassium 3.8 mEq/L (3.5-5.1); Sodium 143 mEq/L (136-145); eGFR For African Americans > 60 (> 60); eGFR For Non-African Americans > 60 (> 60)
[2019-12-14 09:49] LABS: Estimated Average Glucose 148 mg/dl
[2019-12-14] MEDS: Lactobacillus 1 EACH CAP.SPRINK PO SCH (10:03)
[2019-12-14] MEDS: amLODIPine 5 MG TABLET PO SCH (10:03)
[2019-12-14] MEDS: Multivit/Ca/Min/Fe/FA 1 TAB TABLET PO SCH (10:03)
[2019-12-14] MEDS: Aspirin Enteric Coated 81 MG Tablet PO SCH (10:03)
[2019-12-14] MEDS ORDERED: cefTRIAXone 1,000 MG in Water for inj. (sterile) 10 ML IVP SCH (12:00)
[2019-12-14 16:24] VITALS: BP 149/69
[2019-12-14] MEDS ORDERED: Insulin LISPRO 300 UNITS/3 ML VIAL SQ SCH (21:00)
== END 2019-12-14 17:25 | disposition short-term general hospital (02) | DRG 689 ==
LOC: EMEROOGRE 20:02 → INPGRE 20:02
PROVIDERS: ADMIT Family Medicine; ATTEND Family Medicine